=== PATIENT | female | born 1990 | race Caucasian/White ===

== ENCOUNTER 2020-11-22 15:00 | Emergency (ER) | payer BC ==
[2020-11-22 15:18] VITALS: BP 170/109; PULSE 70
[2020-11-22] MEDS ORDERED: Metoclopramide 10 MG/2 ML SDV IM ONE (15:27)
[2020-11-22] MEDS ORDERED: Ketorolac 30 MG/ML SDV IM ONE (15:27)
[2020-11-22] MEDS ORDERED: diphenhydrAMINE 50 MG/ML SDV IM ONE (15:27)
--- NOTE | 2020-11-22 15:31 | EDM.PDOC ---
ED HPI GENERAL MEDICAL PROBLEM - General Chief Complaint: Headache Stated Complaint: DIZZY/MIGRAINE X2DAYS Time Seen by Provider: 11/22/20 15:09 Source of Information: Reports: Patient, RN Notes Reviewed History Limitations: Reports: No Limitations - History of Present Illness INITIAL COMMENTS - FREE TEXT/NARRATIVE: Patient is a 30-year-old female who presents to the ED for the evaluation of her headache. She notes that this is been going on for the past few days and started Monday. She has been using 650 mg Tylenol off and on, and her mother gave her some Shaye earlier today. She states that she began to get some lightheadedness today, and that brings her to the ER for evaluation. She does note some associated nausea but no vomiting or diarrhea, she has had no fevers or chills, any blurred vision or double vision, no spots in her vision. She does note light and sound sensitivity. Primary care provider is Dr. Chew. She takes no regular medications. Patient states she has a history of headaches, but this headache seems to be all over her head. She points to the right side of her head which seems to be the worst however. Treatments HOTEL OFFICE MANAGER: Reports: Acetaminophen, Cold Therapy, Heat Therapy, Other (see below) Other Treatments HOTEL OFFICE MANAGER: massage, manipulation Headache Pain Score (Numeric/FACES): 10 - Related Data Allergies Allergy/AdvReac Type Severity Reaction Status Date / Time No Known Allergies Allergy Verified 11/22/20 15:10 Home Meds: Home Meds . [No Known Home Meds] 11/22/20 [History] Past Medical History HEENT History: Reports: Impaired Vision Other HEENT History: wears glasses DIRECTOR OF WEB MARKETING History: Reports: Other DIRECTOR OF WEB MARKETING History: Neurological History: Reports: Migraines - Infectious Disease History Infectious Disease History: Reports: Chicken Pox - Past Surgical History HEENT Surgical History: Reports: Tonsillectomy GI Surgical History: Reports: Hernia, Abdominal Other GI Surgeries/Procedures: umbilical hernia Social & Family History - Family History Family Medical History: No Pertinent Family History - Tobacco Use Tobacco Use Status *Q: Never Tobacco User - Caffeine Use Caffeine Use: Reports: Coffee - Recreational Drug Use Recreational Drug Use: No - Living Situation & Occupation Living situation: Reports: Single, with Family Occupation: Employed ED ROS GENERAL - Review of Systems Review Of Systems: Comprehensive ROS is negative, except as noted in HPI. - Physical Exam Exam: See Below Exam Limited By: No Limitations General Appearance: Alert, WD/WN, No Apparent Distress Eye Exam: Bilateral Eye: EOMI, Normal Inspection, PERRL Head Exam: Atraumatic, Normocephalic Neck: Normal Inspection, Supple, Non-Tender, Full Range of Motion Respiratory/Chest: No Respiratory Distress, Lungs Clear, Normal Breath Sounds, No Accessory Muscle Use, Chest Non-Tender Cardiovascular: Normal Peripheral Pulses, Regular Rate, Rhythm, No Edema Neuro Exam (Abbreviated): Alert, Oriented, CN II-XII Intact, Normal Cognition, No Motor/Sensory Deficits Extremities: Normal Inspection, Normal Capillary Refill Psychiatric: Normal Affect, Normal Mood Skin Exam: Warm, Dry, Intact, Normal Color, No Rash Course - Vital Signs Last Recorded V/S: Last Vital Signs Temp 97.3 F 11/22/20 15:15 Pulse 70 11/22/20 15:15 Resp 20 11/22/20 15:15 BP 170/109 H 11/22/20 15:15 Pulse Ox 100 11/22/20 15:15 Orthostatic Blood Pressure [] 148/96 Orthostatic Blood Pressure [] 164/86 Orthostatic Blood Pressure [] 140/82 - Orders/Labs/Meds Meds: Medications Discontinued Medications Generic Name Dose Route Start Last Admin Trade Name Fly PRN Reason Stop Dose Admin Diphenhydramine HCl 25 mg 11/22/20 15:27 11/22/20 15:32 Benadryl IM 11/22/20 15:28 25 mg ONETIME ONE Administration Ketorolac Tromethamine 30 mg 11/22/20 15:27 11/22/20 15:34 Toradol IM 11/22/20 15:28 30 mg ONETIME ONE Administration Metoclopramide HCl 10 mg 11/22/20 15:27 11/22/20 15:36 Reglan IM 11/22/20 15:28 10 mg ONETIME ONE Administration - Re-Assessments/Exams Free Text/Narrative Re-Assessment/Exam: 11/22/20 15:31 Patient presents to the ED for the evaluation of a headache. She will get Toradol, Benadryl, Reglan injections today for her headache likely this is just a migraine in nature and she will be discharged home after meds have been given. Departure - Departure Time of Disposition: 16:09 Disposition: Home, Self-Care Condition: Good Clinical Impression: Migraine - Discharge Information *PRESCRIPTION DRUG MONITORING PROGRAM REVIEWED*: No *COPY OF PRESCRIPTION DRUG MONITORING REPORT IN PATIENT PALOMO: No Instructions: Migraine Headache, [id number] Referrals: Rosa White MD [Primary Care Provider] - Forms: ED Department Discharge Additional Instructions: You were evaluated in the ED for your headache. You were given a combination of medications for management. This did seem to provide you pretty good relief of your symptoms. Recommend that you go home and rest in a quiet, darkened room. Try also to keep well hydrated. Please return to the ED if your symptoms should change or worsen. Sepsis Event Note (ED) - Evaluation Sepsis Screening Result: No Definite Risk - Focused Exam Vital Signs: Vital Signs Temp Pulse Resp BP Pulse Ox 11/22/20 15:15 97.3 F 70 20 170/109 H 100
== END 2020-11-22 16:20 | disposition home or self-care (01) ==
LOC: JD.ED 15:00
DX: G43.909 Migraine, unspecified, not intractable, without status migrainosus (principal)
CPT/HCPCS: 96372; 99283; J1200; J1885; J2765

== ENCOUNTER 2021-02-04 08:17 | Emergency (ER) | payer BC, MEDICAID ==
[2021-02-04] MEDS ORDERED: HYDROmorphone 0.5 MG/0.5 ML Syringe IVPUSH ONE (08:44)
[2021-02-04] MEDS ORDERED: Lidocaine 2% Jelly 10 ML Urojet MUCMEM ONE (08:45)
[2021-02-04] MEDS ORDERED: Dextrose 5%-0.9% NaCl 1,000 ML IV SCH (08:45)
--- NOTE | 2021-02-04 08:46 | EDM.PDOC ---
ED HPI GENERAL MEDICAL PROBLEM - General Chief Complaint: Gastrointestinal Problem Stated Complaint: 9 WEEKS PREG DEHYDRATED AND CONSTIPATED Time Seen by Provider: 02/04/21 08:40 Source of Information: Reports: Patient History Limitations: Reports: No Limitations - History of Present Illness INITIAL COMMENTS - FREE TEXT/NARRATIVE: 30-year-old female presents to the ED with constipation. Diffuse lower abdominal cramping pain and constant rectal pressure since yesterday without ability to pass a hard bowel movement. She states the stool in the rectal vault is hard as a rock she can feel it but it just will not come out. She is appreciated mild rectal bleeding. Of note the patient is 9 weeks . No menstrual period was estimated to be December 07 with EDC at September 14, 2021. She is 3 para 2. She has not taken any medications this morning. She has been taking her vitamins for a while. Experiencing diffuse lower intermittent cramping abdominal pain. No nausea or vomiting. She reports constipation occurred after developing acute bout of gastroenteritis where she became dehydrated. She feels she has not cut back up on her fluids. Onset: Gradual Onset Date: 02/02/21 Duration: Day(s):, Getting Worse Location: Reports: Abdomen (Lower abdominal pressure discomfort rectal discomfort due to constipation inability to pass hard stool) Quality: Reports: Ache, Pressure Severity: Moderate Improves with: Reports: None Worsens with: Reports: None Context: Denies: Activity, Exercise, Lifting, Sick Contact, Trauma, Other Associated Symptoms: Reports: Loss of Appetite, Malaise. Denies: No Other Symptoms, Confusion, Chest Pain, Cough, cough w sputum, Diaphoresis, Fever/Chills, Headaches, Nausea/Vomiting, Rash, Seizure, Shortness of Breath, Syncope, Weakness Treatments SFDC ARCHITECT: Reports: Other (see below) (None.) Rectal Pain Score (Numeric/FACES): 8 - Related Data Allergies Allergy/AdvReac Type Severity Reaction Status Date / Time No Known Allergies Allergy Verified 02/04/21 08:39 Home Meds: Home Meds cephALEXin [Keflex] 500 mg .ROUTE 12 01/20/21 [History] Past Medical History - Past Health History Medical/Surgical History: Denies Medical/Surgical History HEENT History: Reports: Impaired Vision Other HEENT History: wears glasses Cardiovascular History: Reports: None Respiratory History: Reports: None Genitourinary History: Reports: None UNISHEAR OPERATOR History: Reports: : 3 Para: 2 Other UNISHEAR OPERATOR History: Musculoskeletal History: Reports: None Neurological History: Reports: Migraines Psychiatric History: Reports: None Endocrine/Metabolic History: Reports: None Hematologic History: Reports: None Immunologic History: Reports: None Oncologic (Cancer) History: Reports: None Dermatologic History: Reports: None - Infectious Disease History Infectious Disease History: Reports: Chicken Pox - Past Surgical History HEENT Surgical History: Reports: Tonsillectomy GI Surgical History: Reports: Hernia, Abdominal Other GI Surgeries/Procedures: umbilical hernia Social & Family History - Family History Family Medical History: No Pertinent Family History - Caffeine Use Caffeine Use: Reports: Coffee - Living Situation & Occupation Living situation: Reports: Single, with Family Occupation: Employed ED ROS GENERAL - Review of Systems Review Of Systems: See Below Constitutional: Reports: Malaise, Weakness, Fatigue, Decreased Appetite. Denies: Fever, Chills, Weight Loss HEENT: Reports: No Symptoms Respiratory: Reports: No Symptoms Cardiovascular: Reports: No Symptoms Endocrine: Reports: Fatigue GI/Abdominal: Reports: Abdominal Pain, Constipation, Other (Is pressure in the rectal vault with inability to pass hard stool.) : Reports: Frequency. Denies: Dysuria Musculoskeletal: Reports: Back Pain Skin: Reports: No Symptoms Neurological: Reports: No Symptoms Psychiatric: Reports: No Symptoms Hematologic/Lymphatic: Reports: No Symptoms Immunologic: Reports: No Symptoms ED EXAM, GI/ABD - Physical Exam Exam: See Below Exam Limited By: No Limitations General Appearance: Alert, WD/WN, Mild Distress, Other (Appears uncomfortable. Temperature is 36.6 degrees. Heart rate 70 and sinus respiratory 16 with O2 sats 100% room air BP is 137/79) Eyes: Bilateral: Normal Appearance (No scleral icterus or blepharal pallor.) Throat/Mouth: Normal Inspection (Tongue is minimally dry.), Normal Lips, Normal Oropharynx, Other Head: Atraumatic, Normocephalic Neck: Normal Inspection, Supple, Non-Tender, Full Range of Motion. No: Lymphadenopathy (L), Lymphadenopathy (R) Respiratory/Chest: No Respiratory Distress, Lungs Clear, Normal Breath Sounds, No Accessory Muscle Use Cardiovascular: Normal Peripheral Pulses, Regular Rate, Rhythm, No Edema, No Gallop, No Murmur, No Rub GI/Abdominal Exam: Normal Bowel Sounds, Soft, Non-Tender, No Organomegaly, Pelvis Stable, Other (Uterine fundus is not palpable abdominally. I believe I can feel the left hemicolon up to the splenic flexure.). No: Guarding, Rigid, Rebound Back Exam: Normal Inspection, Full Range of Motion. No: CVA Tenderness (L), CVA Tenderness (R) Extremities: Normal Inspection, Normal Range of Motion, Non-Tender, No Pedal Edema Neurological: Alert, Oriented, CN II-XII Intact, Normal Cognition, Normal Gait Psychiatric: Normal Affect, Normal Mood Skin Exam: Warm, Dry, Intact, Normal Color, No Rash Course - Vital Signs Last Recorded V/S: Last Vital Signs Temp 36.7 C 02/04/21 12:30 Pulse 92 02/04/21 12:30 Resp 18 02/04/21 12:30 BP 136/90 02/04/21 12:30 Pulse Ox 100 02/04/21 12:30 - Orders/Labs/Meds Meds: Medications Discontinued Medications Generic Name Dose Route Start Last Admin Trade Name Fly PRN Reason Stop Dose Admin Dicyclomine HCl 20 mg 02/04/21 11:22 02/04/21 11:30 Dicyclomine 10 Mg Cap PO 02/04/21 11:23 20 mg ONETIME ONE Administration Hydromorphone HCl 0.5 mg 02/04/21 08:44 02/04/21 09:15 Hydromorphone 0.5 Mg/0.5 Ml Syringe IVPUSH 02/04/21 08:45 Not Given ONETIME ONE Dextrose/Sodium Chloride 1,000 mls @ 999 mls/hr 02/04/21 08:45 02/04/21 09:12 Dextrose 5%-Normal Saline IV 999 mls/hr ASDIRECTED CYNTHIA Administration Lidocaine HCl 10 ml 02/04/21 08:45 02/04/21 09:13 Lidocaine 2% Jelly 10 Ml Urojet MUCMEM 02/04/21 08:46 10 ml ONETIME ONE Administration Magnesium Citrate 210 ml 02/04/21 11:16 02/04/21 11:30 Magnesium Citrate Solution 296 Ml Bottle PO 02/04/21 11:17 210 ml ONETIME ONE Administration - Radiology Interpretation Free Text/Narrative:: 30-year-old female presents to the ED with constipation. Constant rectal pressure since yesterday afternoon with inability to pass hard stool which she can feel in the rectal vault. Minimal rectal bleeding. No bleeding per vagina. Clinically she is 9 weeks . She states that she did have gastroenteritis about a week ago which did cause some dehydration and she believes helped precipitate constipation it is usually not an issue for her. Intermittent diffuse lower abdominal cramping pain. No nausea or vomiting. No fever or chills. I believe I can feel her entire left hemicolon up to the splenic flexure on exam. Benign abdomen otherwise. Plan Fleet enema with mineral oil. She will be given IV D5 normal saline at open to help rehydrate her. She is going to need to start MiraLAX powder 17 g every single day for the next couple of weeks to make sure her bowels returned to normal function. We will place lidocaine gel on the anus and rectal vault to help facilitate passage of hard stool. - Re-Assessments/Exams Free Text/Narrative Re-Assessment/Exam: 02/04/21 10:21 she got up to void and lost a good deal of the Fleet enema during this occasion and no bowel movement occurred. We will therefore proceed with soapsuds enema. 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 Will offer Bentyl 20 mg by mouth for up cramping relief. 02/04/21 10:59 patient was challenged with a soapsuds enema but could only hold about half of the enema and then lost the rest. Nursing staff was then able to remove some of the hard stool from the rectal vault manually. We will now try and give her the rest of the soapsuds enema to further soften the stool bolus. Failing that she will be discharged on magnesium citrate to provide bowel cleanse and I will send her home with another Urojet that she can apply to her anus and rectal tissues to help reduce pain with bowel movement. 02/04/21 12:20: Patient did have a relatively good bowel movement after the second portion of soapsuds enema and is feeling much relief in the rectal area. Still feels swollen. Plan she will be given MiraLAX 7 ounces by mouth mixed with 6 ounces of juice by mouth to further cleanse her bowel and then to start MiraLAX powder 17 g once daily for the next 2 weeks to ensure regular bowel movements occur.. Follow-up with personal care physician or UNISHEAR OPERATOR as planned. Departure - Departure Time of Disposition: 12:25 Disposition: Home, Self-Care 01 Condition: Fair Clinical Impression: Constipation by delayed colonic transit, First trimester , Constipation, Abdominal pain - Discharge Information *PRESCRIPTION DRUG MONITORING PROGRAM REVIEWED*: Not Applicable *COPY OF PRESCRIPTION DRUG MONITORING REPORT IN PATIENT PALOMO: Not Applicable Instructions: Constipation, Adult Referrals: Chet Herrera MD [Primary Care Provider] - Forms: ED Department Discharge Additional Instructions: Evaluation in the emergency room today in regards to diffuse lower abdominal cramping pain associated with large amount of rectal pressure discomfort. Constipation appreciated with inability to pass hard stool bolus. Associated 9- week . You were treated with Fleet enema with mineral oil to soften the stool bolus. Anus was anesthetized with 1% lidocaine jelly to help facilitate passage of hard stool bolus. Fleet enema perhaps soften the stool but you did not have any significant bowel movement with this. You were able to retain half a soapsuds enema on 2 occasions which finally did get your bowels working a bit and certainly passage of the stool plug in the rectal vault. Suggest use of magnesium citrate later this afternoon. Take 7 ounces mixed with 6 ounces of juice of choice or Gatorade Powerade once. We use this because it does not cause any cramping. This will usually start to work in 1 to 2 hours and bowels will usually move another 2 or 3 times helping cleanse the bowel and prevent recurrence of significant constipation. I would suggest going on MiraLAX powder 17 g or 1 scoop daily for the next 10 days to ensure regular bowel movements during the early phase of . Once the uterus comes up out of the pelvis which is at 12 weeks bowel function usually returns back to normal. Sepsis Event Note (ED) - Evaluation Sepsis Screening Result: No Definite Risk - Focused Exam Vital Signs: Vital Signs Temp Pulse Resp BP Pulse Ox 02/04/21 12:30 36.7 C 92 18 136/90 100 02/04/21 08:35 36.6 C 70 16 137/79 100
[2021-02-04] MEDS ORDERED: Magnesium Citrate Solution 296 ML Bottle PO ONE (11:16)
[2021-02-04] MEDS ORDERED: Dicyclomine 10 MG Cap PO ONE (11:22)
[2021-02-04 12:34] VITALS: BP 136/90; PULSE 92
== END 2021-02-04 12:32 | disposition home or self-care (01) ==
LOC: JD.ED 08:17
DX: O99.611 Diseases of the digestive system complicating pregnancy, first trimester (principal); K59.01 Slow transit constipation; Z3A.09 9 weeks gestation of pregnancy
CPT/HCPCS: 99283; A9270; J7042

== ENCOUNTER 2021-02-19 15:34 | Emergency (ER) | payer BC, MEDICAID ==
[2021-02-19 16:24] VITALS: BP 133/81; PULSE 74
--- NOTE | 2021-02-19 17:40 | EDM.PDOC ---
ED HPI GENERAL MEDICAL PROBLEM - General Chief Complaint: BSA/AML COMPLIANCE OFFICER Problem Stated Complaint: 11 WEEKS PREG /LOWER BACK CRAMPS Time Seen by Provider: 02/19/21 16:28 Source of Information: Reports: Patient History Limitations: Reports: No Limitations - History of Present Illness INITIAL COMMENTS - FREE TEXT/NARRATIVE: The patient presents with low back pain. She is 11 weeks gestation. Her LNMP was December 07. She is . She has no vaginal bleeding or vaginal discharge. She has some pelvic cramping at times. This has been going on for a few weeks. She has no fever, chills, cough, congestion, runny nose, chest pain or shortness of breath. She denies dysuria. She has some nausea and vomiting. She has zofran at home. Onset: Gradual Duration: Week(s): Location: Reports: Back Quality: Reports: Ache, Other (Cramping) Severity: Moderate Improves with: Reports: None Worsens with: Reports: None Associated Symptoms: Reports: Nausea/Vomiting. Denies: Chest Pain, Cough, Fever/Chills, Headaches, Shortness of Breath Back Pain Score (Numeric/FACES): 9 - Related Data Allergies Allergy/AdvReac Type Severity Reaction Status Date / Time No Known Allergies Allergy Verified 02/19/21 16:24 Home Meds: Home Meds cephALEXin [Keflex] 500 mg .ROUTE 12 01/20/21 [History] Past Medical History - Past Health History Medical/Surgical History: Denies Medical/Surgical History HEENT History: Reports: Impaired Vision Other HEENT History: wears glasses Cardiovascular History: Reports: None Respiratory History: Reports: None Genitourinary History: Reports: None BSA/AML COMPLIANCE OFFICER History: Reports: Other BSA/AML COMPLIANCE OFFICER History: Musculoskeletal History: Reports: None Neurological History: Reports: Migraines Psychiatric History: Reports: None Endocrine/Metabolic History: Reports: None Hematologic History: Reports: None Immunologic History: Reports: None Oncologic (Cancer) History: Reports: None Dermatologic History: Reports: None - Infectious Disease History Infectious Disease History: Reports: Chicken Pox - Past Surgical History Head Surgeries/Procedures: Reports: None HEENT Surgical History: Reports: Tonsillectomy GI Surgical History: Reports: Hernia, Abdominal Other GI Surgeries/Procedures: umbilical hernia Female Surgical History: Reports: None Social & Family History - Family History Family Medical History: No Pertinent Family History - Tobacco Use Tobacco Use Status *Q: Never Tobacco User Second Hand Smoke Exposure: No - Caffeine Use Caffeine Use: Reports: Soda - Recreational Drug Use Recreational Drug Use: No - Living Situation & Occupation Living situation: Reports: Single, with Family Occupation: Employed ED ROS GENERAL - Review of Systems Review Of Systems: See Below Constitutional: Reports: No Symptoms HEENT: Reports: No Symptoms Respiratory: Reports: No Symptoms Cardiovascular: Reports: No Symptoms Endocrine: Reports: No Symptoms GI/Abdominal: Reports: Abdominal Pain, Nausea, Vomiting. Denies: Diarrhea : Reports: No Symptoms Musculoskeletal: Reports: Back Pain ED EXAM, GI/ABD - Physical Exam Exam: See Below Exam Limited By: No Limitations General Appearance: Alert, No Apparent Distress Ears: Normal External Exam Nose: Normal Inspection Head: Atraumatic, Normocephalic Neck: Normal Inspection Respiratory/Chest: No Respiratory Distress, Lungs Clear, Normal Breath Sounds Cardiovascular: Regular Rate, Rhythm, No Edema, No Murmur GI/Abdominal Exam: Soft, Non-Tender, No Organomegaly, No Mass Back Exam: Normal Inspection Extremities: Normal Inspection Course - Vital Signs Last Recorded V/S: Last Vital Signs Temp 97.5 F 02/19/21 16:21 Pulse 74 02/19/21 16:21 Resp 18 02/19/21 16:21 BP 133/81 02/19/21 16:21 Pulse Ox 99 02/19/21 16:21 - Orders/Labs/Meds Orders: Active Orders 24 hr Category Date Time Status OB 1st Tri Sgl 1st Gest [US] Stat Exams 02/19/21 16:41 Taken COMPREHENSIVE METABOLIC PN,CMP [CHEM] Stat Lab 02/19/21 17:07 Received HCG QUANTITATIVE [CHEM] Stat Lab 02/19/21 17:07 Received UA W/MICROSCOPIC [URIN] Stat Lab 02/19/21 17:25 Received Labs: Laboratory Tests 02/19/21 Range/Units 17:07 WBC 11.34 H (3.98-10.04) K/mm3 RBC 4.75 (3.98-5.22) M/mm3 Hgb 13.0 (11.2-15.7) gm/dl Hct 40.2 (34.1-44.9) % MCV 84.6 (79.4-94.8) fl MCH 27.4 (25.6-32.2) pg MCHC 32.3 (32.2-35.5) g/dl RDW Std Deviation 42.3 (36.4-46.3) fL Plt Count 319 (182-369) K/mm3 MPV 9.5 (9.4-12.3) fl Neut % (Auto) 77.5 H (34.0-71.1) % Lymph % (Auto) 16.4 L (19.3-51.7) % [place] % (Auto) 4.2 L (4.7-12.5) % Eos % (Auto) 1.0 (0.7-5.8) Baso % (Auto) 0.4 (0.1-1.2) % Neut # (Auto) 8.79 H (1.56-6.13) K/mm3 Lymph # (Auto) 1.86 (1.18-3.74) K/mm3 [place] # (Auto) 0.48 H (0.24-0.36) K/mm3 Eos # (Auto) 0.11 (0.04-0.36) K/mm3 Baso # (Auto) 0.04 (0.01-0.08) K/mm3 - Re-Assessments/Exams Free Text/Narrative Re-Assessment/Exam: 02/19/21 17:38 I ordered a transvaginal US and labs. Her WBC was 11.34. Her US shows single live intrauterine with ultrasound dates at 10 weeks 6 days. No complications are appreciated. 02/19/21 17:44 She needs to go and would prefer I call her the rest of the results. I will do that. Departure - Departure Time of Disposition: 17:50 Disposition: Home, Self-Care 01 Condition: Good Clinical Impression: Qualifiers: Weeks of gestation: 11 weeks Qualified Code(s): Z3A.11 - 11 weeks gestation of Low back pain Qualifiers: Chronicity: acute Back pain laterality: bilateral Sciatica presence: without sciatica Qualified Code(s): M54.5 - Low back pain - Discharge Information *PRESCRIPTION DRUG MONITORING PROGRAM REVIEWED*: Not Applicable *COPY OF PRESCRIPTION DRUG MONITORING REPORT IN PATIENT PALOMO: Not Applicable Referrals: Chet Herrera MD [Primary Care Provider] - 1 Week Forms: ED Department Discharge Additional Instructions: Drink plenty of fluids. Take tylenol for pain. You are 10 weeks and 6 days gestation. Follow up with Dr Herrera. Please return if you are worse. Sepsis Event Note (ED) - Evaluation Sepsis Screening Result: No Definite Risk - Focused Exam Vital Signs: Vital Signs Temp Pulse Resp BP Pulse Ox 02/19/21 16:21 97.5 F 74 18 133/81 99 - My Orders Last 24 Hours: My Active Orders 02/19/21 16:41 OB 1st Tri Sgl 1st Gest [US] Stat 02/19/21 17:07 COMPREHENSIVE METABOLIC PN,CMP [CHEM] Stat HCG QUANTITATIVE [CHEM] Stat 02/19/21 17:25 UA W/MICROSCOPIC [URIN] Stat - Assessment/Plan Last 24 Hours: My Active Orders 02/19/21 16:41 OB 1st Tri Sgl 1st Gest [US] Stat 02/19/21 17:07 COMPREHENSIVE METABOLIC PN,CMP [CHEM] Stat HCG QUANTITATIVE [CHEM] Stat 02/19/21 17:25 UA W/MICROSCOPIC [URIN] Stat
--- NOTE | 2021-02-19 18:13 | US ---
First trimester obstetrical ultrasound: Multiple real-time images were obtained transabdominally. Comparison: Previous obstetrical ultrasound of 01/20/21. Dates: Current ultrasound: [facility] 09/11/21, gestational age 10 weeks 6 days Single intrauterine gestation is seen. Embryo is identified. Amniotic fluid volume is normal. Normal cervical length is seen. Maternal ovaries are within normal limits. Measurements: [place]-rump length: 3.86 cm - 10 weeks 6 days Heart rate: 167 bpm Impression: 1. Single intrauterine gestation. Dates as noted above. 2. No complicating process is seen by ultrasound at this time. Diagnostic code #1 I agree with preliminary report from [facility], finalized on 02/19/21, 6:22 PM CDT
== END 2021-02-19 18:05 | disposition home or self-care (01) ==
LOC: JD.ED 15:34
DX: O99.891 Other specified diseases and conditions complicating pregnancy (principal); M54.5 Low back pain; Z3A.11 11 weeks gestation of pregnancy
CPT/HCPCS: 36415; 76801; 76801-26; 80053; 81001; 84702; 85025; 99283; 99284-25

== ENCOUNTER 2022-10-07 09:21 | Emergency (ER) | payer MEDICAID ==
[2022-10-07 09:35] VITALS: BP 164/105; PULSE 65
[2022-10-07] MEDS ORDERED: Metoclopramide 10 MG/2 ML SDV IVPUSH ONE (09:47)
[2022-10-07] MEDS ORDERED: Sodium Chloride 0.9% 10 ML Syringe FLUSH PRN (09:47)
[2022-10-07] MEDS ORDERED: Ketorolac 30 MG/ML SDV IVPUSH ONE (09:48)
[2022-10-07] MEDS ORDERED: diphenhydrAMINE 50 MG/ML SDV IVPUSH ONE (09:49)
[2022-10-07] MEDS ORDERED: Sodium Chloride 0.9% 1,000 ML IV SCH (10:00)
== END 2022-10-07 11:42 | disposition home or self-care (01) ==
LOC: JD.ED 09:21
DX: R51.9 Headache, unspecified (principal)
CPT/HCPCS: 70450; 96361; 96374; 96375; 99284; J1200; J1885; J2765; J3490; J7030

== ENCOUNTER 2024-09-28 12:52 | Emergency (ER) | payer MEDICAID ==
[2024-09-28 14:03] LABS: BASOPHILS ABSOLUTE AUTO 0.1 K/mm3 (0.0-0.2); BASOPHILS PERCENT AUTO 1.1 % (0.0-1.0); EOSINOPHILS ABSOLUTE AUTO 0.1 K/mm3 (0.0-0.4); EOSINOPHILS PERCENT AUTO 1.2 % (0.0-6.0); HEMOGLOBIN 13.8 gm/dl (12.0-16.0); IMMATURE GRAN ABSOLUTE AUTO 0.01 K/mm3 (0.00-0.05); IMMATURE GRAN PERCENT AUTO 0.1 % (0.0-0.4); LYMPHOCYTES ABSOLUTE AUTO 2.1 K/mm3 (1.0-4.8); LYMPHOCYTES PERCENT AUTO 28.3 % (24.0-44.0); MEAN CORPUSCULAR HGB CONC 32.9 g/dl (32.0-36.0); MEAN CORPUSCULAR VOLUME 85.2 fl (83.0-99.0); MONOCYTES ABSOLUTE AUTO 0.4 K/mm3 (0.0-0.8); MONOCYTES PERCENT AUTO 5.6 % (0.0-8.0); NEUTROPHILS ABSOLUTE AUTO 4.6 K/mm3 (1.8-7.7); NEUTROPHILS PERCENT AUTO 63.7 % (41.0-71.0); PLATELET COUNT,PLT 282 K/mm3 (150-400); RED BLOOD CELL COUNT 4.93 M/mm3 (4.10-5.30); WHITE BLOOD CELL COUNT,WBC 7.29 K/mm3 (3.9-11.3)
[2024-09-28 14:24] LABS: INR 1.03; PROTHROMBIN TIME 10.9 SECONDS (9.7-12.0)
[2024-09-28 14:25] LABS: PTT,PARTIAL THROMBOPLSTIN TIME 29.1 SECONDS (21.7-31.4)
[2024-09-28 14:36] LABS: A/G RATIO 1.2 (1-2); ALANINE AMINOTRANSFERASE,ALT 25 U/L (14-59); ALBUMIN 4.1 g/dl (3.4-5.0); ALKALINE PHOSPHATASE 49 U/L (46-116); ANION GAP 15.1 (5-15); ASPARTATE AMNIOTRANSFERASE,AST 15 U/L (15-37); BILIRUBIN TOTAL 0.3 mg/dL (0.2-1.0); BLOOD UREA NITROGEN,BUN 16 mg/dL (7-18); BUN/CREATININE RATIO 17.8 (14-18); CALCIUM 9.7 mg/dL (8.5-10.1); CARBON DIOXIDE,CO2 26 mEq/L (21-32); CHLORIDE,CL 102 mEq/L (98-107); CREATININE 0.9 mg/dL (0.55-1.02); EST CRCL DRUG DOSING (CG) 85.65 mL/min; ESTIMATED GFR 86 mL/min (>60); GLUCOSE RANDOM 117 mg/dL (70-99); LIPASE 35 U/L (16-77); MAGNESIUM 1.9 mg/dL (1.8-2.4); POTASSIUM,K 3.1 mEq/L (3.5-5.1); PROTEIN TOTAL,TP 7.5 g/dl (6.4-8.2); SODIUM,NA 140 mEq/L (136-145); TSH 2.785 uIU/mL (0.358-3.74)
[2024-09-28 14:37] LABS: TROPONIN I HIGH SENSITIVITY < 4 pg/mL (<=51)
[2024-09-28] MEDS: hydrOXYzine HCl 50 MG Tab PO STA (15:56)
[2024-09-28] MEDS: Potassium Chloride 20 MEQ Tab.ER PO ONE (16:10)
[2024-09-28 16:15] VITALS: BP 151/100; PULSE 78
== END 2024-09-28 16:15 | disposition home or self-care (01) ==
LOC: JD.ED 12:52
DX: R07.9 Chest pain, unspecified (principal); F41.9 Anxiety disorder, unspecified; E87.6 Hypokalemia; Z79.899 Other long term (current) drug therapy
CPT/HCPCS: 36415; 71045; 80053; 83605; 83690; 83735; 83880; 84443; 84484; 85025; 85379; 85610; 85730; 86140; 93005; 99285; A9270; 93010; 99284

== ENCOUNTER 2025-02-08 15:38 | Emergency (ER) | payer MEDICAID ==
[2025-02-08] MEDS: Sodium Chloride 0.9% 10 ML Syringe FLUSH PRN (16:46)
[2025-02-08] MEDS: diphenhydrAMINE 50 MG/ML SDV IVPUSH ONE (16:47)
[2025-02-08] MEDS: Ketorolac 30 MG/ML SDV IVPUSH ONE (16:49)
[2025-02-08] MEDS: Metoclopramide 10 MG/2 ML SDV IVPUSH ONE (16:53)
[2025-02-08] MEDS: Sodium Chloride 0.9% 1,000 ML IV ONE (16:55)
[2025-02-08 17:00] LABS: BASOPHILS ABSOLUTE AUTO 0.1 K/mm3 (0.0-0.2); BASOPHILS PERCENT AUTO 1.2 % (0.0-1.0); EOSINOPHILS ABSOLUTE AUTO 0.1 K/mm3 (0.0-0.4); EOSINOPHILS PERCENT AUTO 1.7 % (0.0-6.0); HEMOGLOBIN 14.5 gm/dl (12.0-16.0); IMMATURE GRAN ABSOLUTE AUTO 0.02 K/mm3 (0.00-0.05); IMMATURE GRAN PERCENT AUTO 0.3 % (0.0-0.4); LYMPHOCYTES ABSOLUTE AUTO 2.4 K/mm3 (1.0-4.8); LYMPHOCYTES PERCENT AUTO 32.3 % (24.0-44.0); MEAN CORPUSCULAR HEMOGLOBIN 28.5 pg (28.0-32.0); MEAN CORPUSCULAR VOLUME 86.4 fl (83.0-99.0); MEAN PLATELET VOLUME 9.3 fl (9.4-12.3); MONOCYTES ABSOLUTE AUTO 0.7 K/mm3 (0.0-0.8); MONOCYTES PERCENT AUTO 9.8 % (0.0-8.0); NEUTROPHILS ABSOLUTE AUTO 4.1 K/mm3 (1.8-7.7); NEUTROPHILS PERCENT AUTO 54.7 % (41.0-71.0); PLATELET COUNT,PLT 315 K/mm3 (150-400); RED BLOOD CELL COUNT 5.09 M/mm3 (4.10-5.30); WHITE BLOOD CELL COUNT,WBC 7.52 K/mm3 (3.9-11.3)
[2025-02-08 17:18] LABS: A/G RATIO 1.1 (1-2); ALBUMIN 4.2 g/dl (3.4-5.0); ANION GAP 9.2 (5-15); BILIRUBIN TOTAL 0.4 mg/dL (0.2-1.0); BUN/CREATININE RATIO 13.3 (14-18); C-REACTIVE PROTEIN 0.14 mg/dL (<0.30); CALCIUM 9.4 mg/dL (8.5-10.1); CREATININE 0.9 mg/dL (0.55-1.02); EST CRCL DRUG DOSING (CG) 85.65 mL/min; POTASSIUM,K 3.2 mEq/L (3.5-5.1)
[2025-02-08 19:22] VITALS: BP 128/75; PULSE 76
== END 2025-02-08 18:20 | disposition home or self-care (01) ==
LOC: JD.ED 15:38
DX: R51.9 Headache, unspecified (principal); R59.0 Localized enlarged lymph nodes; Z88.0 Allergy status to penicillin; Z79.899 Other long term (current) drug therapy; Z86.16 Personal history of COVID-19
CPT/HCPCS: 36415; 80053; 84703; 85025; 86140; 96361; 96374; 96375; 99284; J1200; J1885; J2765; J7030; 99283